=== PATIENT | female | born 1945 | race Caucasian/White ===

== ENCOUNTER 2017-03-11 15:58 | Inpatient (IN) | payer OTHER ==
[~2017-03-11] VITALS: Ht 157.5 cm; Wt 60.8 kg
--- NOTE | ~2017-03-11 | EKG ---
[address] [place] [address] ELECTROCARDIOGRAM REPORT Name: LES SUAREZ Room #: 456-P ADM IN M.R.#: [id number] Admission: 03/11/17 Attend Phys: Aparna Alas Discharge: Date of : 47 Report #: [id number] THIS REPORT FOR: //name// [facility] ED Test Date: 2017-03-11 Test Time: 18:19:13 Pat Name: LES SUAREZ Department: Room: 456 Gender: F Plasma Cutting Machine Operator: : 1945 Requested By: Eric Hogan Order Number: [id number] MD: Roger Gonzalez Measurements Intervals [place] Rate: 91 P: 101 MT: 186 QRS: -44 QRSD: 126 T: 92 QT: 387 QTc: 477 Interpretive Statements Sinus rhythm Left bundle branch block Compared to ECG 11/10/2016 14:05:44 No significant change was found Electronically Signed On 03-13-2017 9:14:43 CDT by Roger Gonzalez [email or web address] <ELECTRONICALLY SIGNED> By: Roger Gonzalez MD, [facility] 03/13/17 0914 1819 18 Roger Gonzalez MD, FACC /EPI
[2017-03-11 15:58] VITALS: BP 202/86
[~2017-03-11 15:58] MED LIST: AMITRIPTYLINE H50 M2 PO; BACTRIM DS TAB1 EACH PO; GLUCOPHAGE XR500 MG PO; GLYBURIDE 2.52.5 MG PO; LIPITOR10 MG PO; LISINOPRIL-HCT1 EACH PO; LOPRESSOR50 PO
[2017-03-11 16:37] LABS: ABSOLUTE NEUTROPHILS 11.3 thou/uL (1.4-8.2); BASOPHILS 0.8 % (0.0-2.0); EOSINOPHILS 0.6 % (0.0-3.0); HEMATOCRIT 36.5 % (37.0-47.0); HEMOGLOBIN 12.2 gm/dL (12.0-15.0); LYMPHOCYTES 12.9 % (24.0-44.0); MANUAL DIFF NO; MCH 28.2 pg (26.0-34.0); MCHC 33.4 g/dL (28.0-37.0); MCV 84.3 fL (80.0-100.0); MONOCYTES 2.7 % (1.0-8.0); PLATELET COUNT 417 thou/uL (150-400); RBC 4.33 mil/uL (4.20-5.00); RDW 13.9 % (10.5-14.5); WBC 13.7 thou/uL (4.0-11.0)
[2017-03-11 16:50] LABS: ANION GAP 12 mmol/L (7-16); BUN 23 mg/dL (7-18); CHLORIDE 96 mmol/L (98-107); CO2 25 mmol/L (21-32); CREATININE 0.9 mg/dL (0.6-1.0); GLUCOSE 254 mg/dL (74-106); POTASSIUM 4.1 mmol/L (3.5-5.1); SODIUM 133 mmol/L (136-145)
[2017-03-11 16:54] LABS: ALBUMIN 3.7 g/dL (3.4-5.0); ALKALINE PHOSPHATASE 94 U/L (46-116); DIRECT BILIRUBIN < 0.1 mg/dL (<0.1-0.3); SGOT 14 U/L (15-37); SGPT 26 U/L (30-65); TOTAL BILIRUBIN 0.2 mg/dL (<0.1-1.0); TOTAL PROTEIN 8.6 g/dL (6.4-8.2)
[2017-03-11] MEDS ORDERED: CLEOCIN HCL300 MG PO (17:07)
[2017-03-11] MEDS ORDERED: NORCO 10-325 T1 EACH PO (17:08)
[2017-03-11] MEDS ORDERED: LISINOPRIL-HCT1 EAC1 PO (17:09)
[2017-03-11] MEDS ORDERED: ASPIRIN81 M2 PO (17:10)
[2017-03-11 19:05] LABS: URINE BILIRUBIN NEGATIVE (Negative); URINE BLOOD TRACE (Negative); URINE COLOR YELLOW; URINE GLUCOSE-RANDOM* 2+ (Negative); URINE KETONES 1+ (Negative); URINE NITRITE NEGATIVE (Negative); URINE PROTEIN (DIPSTICK) TRACE (Negative); URINE UROBILINOGEN 0.2 E.U./dl (0.2-1.0)
[2017-03-11 20:33] VITALS: BP 190/70
[2017-03-11 20:51] VITALS: BP 174/63
[2017-03-12 03:25] VITALS: BP 119/48
[2017-03-12 06:14] LABS: ABSOLUTE NEUTROPHILS 9.3 thou/uL (1.4-8.2); BASOPHILS 0.3 % (0.0-2.0); EOSINOPHILS 0.1 % (0.0-3.0); HEMATOCRIT 31.6 % (37.0-47.0); HEMOGLOBIN 10.6 gm/dL (12.0-15.0); LYMPHOCYTES 20.2 % (24.0-44.0); MCH 27.5 pg (26.0-34.0); MCHC 33.4 g/dL (28.0-37.0); MCV 82.3 fL (80.0-100.0); MONOCYTES 7.1 % (1.0-8.0); PLATELET COUNT 384 thou/uL (150-400); POLYS 72.3 % (36.0-66.0); RBC 3.84 mil/uL (4.20-5.00); RDW 14.4 % (10.5-14.5); WBC 12.9 thou/uL (4.0-11.0)
[2017-03-12 06:17] LABS: MANUAL DIFF NO
[2017-03-12 06:30] LABS: ALBUMIN 2.9 g/dL (3.4-5.0); CALCIUM 8.5 mg/dL (8.5-10.1); CREATININE 1.2 mg/dL (0.6-1.0); POTASSIUM 3.5 mmol/L (3.5-5.1); TOTAL BILIRUBIN 0.2 mg/dL (<0.1-1.0); TOTAL PROTEIN 6.6 g/dL (6.4-8.2)
[2017-03-12 07:53] VITALS: BP 109/51
[2017-03-12 12:09] VITALS: BP 147/63
[2017-03-12 16:01] VITALS: BP 152/65
[2017-03-12 19:23] VITALS: BP 177/79
[2017-03-13 03:12] VITALS: BP 164/67
[2017-03-13 06:19] LABS: ALBUMIN 2.9 g/dL (3.4-5.0); CALCIUM 8.5 mg/dL (8.5-10.1); CREATININE 0.8 mg/dL (0.6-1.0); TOTAL BILIRUBIN 0.3 mg/dL (<0.1-1.0); TOTAL PROTEIN 6.1 g/dL (6.4-8.2)
[2017-03-13 07:55] VITALS: BP 167/83
[2017-03-13 11:27] VITALS: BP 158/79
[2017-03-13 15:54] VITALS: BP 161/60
[2017-03-13 19:48] VITALS: BP 155/71
[2017-03-14 03:15] VITALS: BP 146/60
[2017-03-14 08:18] VITALS: BP 186/62
[2017-03-14 10:58] VITALS: BP 186/62
== END 2017-03-14 13:49 | disposition home or self-care (01) | DRG 444 ==
LOC: ER 15:58 → 4W 19:10 → EROBS 19:10 → 4W 20:33
PROVIDERS: Hospitalist; Nurse Practitioner
DX: K83.1 Obstruction of bile duct (principal); N17.0 Acute kidney failure with tubular necrosis; E86.0 Dehydration; E11.9 Type 2 diabetes mellitus without complications; I10 Essential (primary) hypertension; F32.9 Major depressive disorder, single episode, unspecified; F17.210 Nicotine dependence, cigarettes, uncomplicated; G89.29 Other chronic pain; K04.7 Periapical abscess without sinus; F43.9 Reaction to severe stress, unspecified; Z90.11 Acquired absence of right breast and nipple; Z90.49 Acquired absence of other specified parts of digestive tract; Z79.82 Long term (current) use of aspirin; Z79.84 Long term (current) use of oral hypoglycemic drugs; Z79.899 Other long term (current) drug therapy
CPT/HCPCS: 10040

== ENCOUNTER 2018-01-10 19:37 | Inpatient (IN) | payer OTHER ==
[~2018-01-10] VITALS: Ht 157.5 cm; Wt 59.7 kg
--- NOTE | ~2018-01-10 | 2DMMODE ---
[facility] [address] [place] [address] 2 D/M-MODE ECHOCARDIOGRAM Name: LES SUAREZ Room #: 205-P [facility] IN ..#: [id number] Admission: 01/10/18 Attend Phys: Linwood Gtz, Discharge: Date of : 47 Date of Service: 01/11/18 1144 Report #: [id number] THIS REPORT FOR: //name// APPROVED REPORT Study performed: 01/11/2018 10:35:27 EXAM: Comprehensive 2D, Doppler, and color-flow Echocardiogram Patient Location: Bedside Room #: 205 Status: routine BSA: 1.60 HR: 83 bpm BP: 115/55 mmHg Rhythm: NSR with irregularities Other Information Study Quality: Good Indications Dizziness, syncope, murmur. Hx: DM, HTN, PVD, tobacco abuse. 2D Dimensions RVDd: 32.22 mm LVEF(%): 53.42 (>50%) IVSd: 9.73 (7-11mm) LVOT Diam: 20.04 (18-24mm) LVDd: 36.77 mm PWd: 9.59 (7-11mm) Ascending Ao: 26.44 (22-36mm) LVDs: 26.86 (25-40mm) Aortic Root: 25.20 mm Kathleen's LVEF: 53.42 % Volumes Left Atrial Volume (Systole) Single Plane 4CH: 37.86 mL Single Plane 2CH: 53.55 mL LA ESV Index: 30.00 mL/m2 Aortic Valve AoV Peak Lewis.: 2.06 m/s AO Peak Gr.: 17.06 mmHg LVOT Max P.46 mmHg AO Mean Gr.: 8.89 mmHg AO V2 Mean: 1.43 m/s LVOT Max V: 1.05 m/s AO V2 VTI: 49.15 cm FRANCI Vmax: 1.60 cm2 AI Vmax: 4.27 m/s AI Jeff Davis: 3.94 m/s2 [facility] [place] [address] 2 D/M-MODE ECHOCARDIOGRAM Name: LES SUAREZ Room #: 205-P [facility] IN ..#: [id number] Admission: 01/10/18 Attend Phys: Linwood Gtz, Discharge: Date of : 47 Date of Service: 01/11/18 1144 Report #: [id number] AI PHT: 314.78 ms Mitral Valve E/A Ratio: 0.9 MV Decel. Time: 140.54 ms MV E Max Lewis.: 0.78 m/s MV A Lewis.: 0.91 m/s MV PHT: 40.76 ms IVRT: 93.43 ms Pulmonary Valve PV Peak Lewis.: 1.09 m/s PV Peak Gr.: 4.79 mmHg Pulmonary Vein P Vein S: 0.34 m/s P Vein D: 0.40 m/s P Vein S/D Ratio: 0.85 Tricuspid Valve RAP Estimate: 5.00 mmHg Left Ventricle The left ventricle is normal size. There is normal left ventricular wall thickness. Left ventricular systolic function is normal. LVEF is 55%. Mild diastolic dysfunction is present (impaired relaxation pattern). Right Ventricle The right ventricle is normal size. The right ventricular systolic function is normal. Atria The left atrium size is normal. The right atrium size is normal. Aortic Valve Aortic valve is calcified. Moderate aortic regurgitation. There is very mild valvular aortic stenosis. Calculated aortic valve area is 1.8 cm2 with maximum pressure gradient of 17 mmHg and mean pressure gradient of 9 mmHg. Mitral Valve Mitral valve leaflets are mildly thickened and calcified. Mild mitral regurgitation. No evidence of mitral valve stenosis. Tricuspid Valve [facility] [address] [place] [address] 2 D/M-MODE ECHOCARDIOGRAM Name: LES SUAREZ Room #: 205-P [facility] IN [facility]#: [id number] Admission: 01/10/18 Attend Phys: Linwood Gtz, Discharge: Date of : 47 Date of Service: 01/11/18 1144 Report #: [id number] The tricuspid valve is normal in structure. There is no tricuspid valve regurgitation noted. Unable to assess PA pressure. Pulmonic Valve The pulmonary valve is normal in structure. Trace pulmonic regurgitation. Great Vessels The aortic root is normal in size. The ascending aorta is normal in size. IVC is normal in size and collapses >50% with inspiration. Pericardium There is no pericardial effusion. <Conclusion> The left ventricle is normal size. There is normal left ventricular wall thickness. Left ventricular systolic function is normal. Mild diastolic dysfunction is present (impaired relaxation pattern). The right ventricle is normal size. The left atrium size is normal. There is very mild valvular aortic stenosis. Calculated aortic valve area is 1.8 cm2 with maximum pressure gradient of 17 mmHg and mean pressure gradient of 9 mmHg. Moderate aortic regurgitation. Mild mitral regurgitation. <ELECTRONICALLY SIGNED> By: Semaj Sherwood MD 01/11/18 1144 1144 1144 Semaj Sherwood MD /INF
--- NOTE | ~2018-01-10 | HC ---
[facility] [place] [address] CONSULTATION Name: LES SUAREZ Room #: 205-P [facility] IN M.R.#: [id number] Admission: 01/10/18 Attend Phys: Linwood Gtz DO Discharge: 01/11/18 Date of : 47 Report #: [id number] THIS REPORT FOR: //name// CC: Dr. Jennifer Rhodes MD DATE OF SERVICE: 01/11/2018 INTRODUCTION: The patient is a 72-year-old female being seen for a general foot care. She has a history of diabetes, has been admitted with dehydration, dizziness. She also has had a long history of peripheral arterial disease and pain in her left leg. She has undergone previous vascular procedures to reestablish normal blood flow. The patient has a history of diabetes with some level of sensation loss; however, does state that she experiences pain with her feet, in fact has a painful left fourth toe secondary to impingement on her fifth toe. She generally does not wear especially footwear recently. Because of the pain in her left foot, has been wearing slippers at home. PAST MEDICAL HISTORY: With regard to this consultation is otherwise, unremarkable. PHYSICAL EXAMINATION: PEDAL: Reveals dorsalis pedis and posterior tibial pulses that are not palpable bilaterally. Skin is cool and atrophic. She has mild edema of the left foot and some discoloration. NEUROLOGIC: The patient has ability to sense a soft touch utilizing Hamilton-Maximus monofilament despite her subjective sense of "numbness." DERMATOLOGIC: Reveals elongated, thickened and mycotic nails, particularly both hallux nails, which are severely dystrophic. There are no acute findings with regard to these nails. They are consistent with onychodystrophy associated with onychomycosis. There is a small area of irritation on the lateral aspect of the left fourth proximal interphalangeal joint secondary to impingement of her fifth toe. This is also a foot that is dysvascular. Currently, there is no open sore at this site; however, the skin is thin and fragile. This fourth toe is also sore. There is no evidence of cellulitis or infection. Remainder of her dermatologic exam reveals no additional pathology. IMPRESSION: 1. Diabetes mellitus. 2. Peripheral arterial disease. 3. Diabetic peripheral neuropathy. 4. Onychodystrophy, presumably associated with onychomycosis. [address] [address] CONSULTATION Name: LES SUAREZ Room #: 205-P DIS IN M.R.#: [id number] Admission: 01/10/18 Attend Phys: Linwood Gtz DO Discharge: 01/11/18 Date of : 47 Report #: [id number] PLAN: The patient's condition is reviewed with her at length. We reviewed strategies for avoiding foot complications. She is currently being seen by Dr. Christina and Dr. Rodriguez regarding her peripheral arterial disease and her vascular status. Her left fourth toe is stable and we discussed methods for keeping these toes to prevent further injury. Her nails were debrided. No additional pathology is noted at the time of treatment. It has been a pleasure having the opportunity of working with the patient. If there are any questions regarding this consultation, please do not hesitate to contact me. I will be pleased to follow up with her upon request. By: 1300 36 Geo Anand DPM /arturo
--- NOTE | ~2018-01-10 | EKG ---
[place] [address] [facility] [place] [address] ELECTROCARDIOGRAM REPORT Name: LES SUAREZ Room #: 205-P ADM IN M.R.#: [id number] Admission: 01/10/18 Attend Phys: Linwood Gtz DO Discharge: Date of : 47 Report #: [id number] THIS REPORT FOR: //name// [facility] ED Test Date: 2018-01-10 Test Time: 19:56:58 Pat Name: LES SUAREZ Department: Room: Gender: F Ndt Inspector: FABI : 1945 Requested By: Eric Hogan Order Number: [id number] MD: Tha Banerjee Measurements Intervals [place] Rate: 90 P: -62 AL: 176 QRS: -41 QRSD: 135 T: 110 QT: 380 QTc: 465 Interpretive Statements Sinus or ectopic atrial rhythm Left bundle branch block Baseline wander in lead(s) II,III,aVF Compared to ECG 03/11/2017 18:19:13 Ectopic atrial rhythm now present Sinus rhythm no longer present Electronically Signed On 01-11-2018 8:20:54 CDT by Tha Banerjee [email or web address] <ELECTRONICALLY SIGNED> By: Tha Banerjee MD 01/11/18819 55 55 Tha Banerjee MD /EPI
[~2018-01-10 19:37] MED LIST changes: +ASPIRIN81 M2 PO; +CLEOCIN HCL300 MG PO; +LISINOPRIL-HCT1 EAC1 PO; +NORCO 10-325 T1 EACH PO
[2018-01-10 19:53] VITALS: BP 181/91
[2018-01-10 20:40] LABS: ABSOLUTE NEUTROPHILS 5.3 thou/uL (1.4-8.2); BASOPHILS 0.9 % (0.0-2.0); EOSINOPHILS 1.4 % (0.0-3.0); HEMATOCRIT 31.6 % (37.0-47.0); HEMOGLOBIN 10.5 gm/dL (12.0-15.0); LYMPHOCYTES 32.8 % (24.0-44.0); MCH 26.9 pg (26.0-34.0); MCHC 33.4 g/dL (28.0-37.0); MCV 80.5 fL (80.0-100.0); MONOCYTES 6.8 % (1.0-8.0); PLATELET COUNT 438 thou/uL (150-400); POLYS 58.1 % (36.0-66.0); RBC 3.92 mil/uL (4.20-5.00); RDW 14.4 % (10.5-14.5); WBC 9.2 thou/uL (4.0-11.0)
[2018-01-10 20:50] LABS: ANION GAP 10 mmol/L (7-16); BUN 19 mg/dL (7-18); CALCIUM 9.2 mg/dL (8.5-10.1); CHLORIDE 91 mmol/L (98-107); CO2 21 mmol/L (21-32); CREATININE 1.2 mg/dL (0.6-1.0); GLUCOSE 47 mg/dL (74-106); POTASSIUM 3.9 mmol/L (3.5-5.1); SODIUM 122 mmol/L (136-145)
[2018-01-10 20:59] LABS: TROPONIN-I < 0.04 ng/mL (<0.06)
[2018-01-10 21:54] VITALS: BP 184/73
[2018-01-10 22:40] VITALS: BP 150/61
[2018-01-10] MEDS ORDERED: FOLBIC RF TABL1 EACH PO (23:25)
[2018-01-10 23:35] VITALS: BP 152/62
[2018-01-11] VITALS (7 sets, daily range): BP systolic 115–142; BP diastolic 40–66
[2018-01-11 05:28] LABS: CALCIUM 8.7 mg/dL (8.5-10.1); POTASSIUM 3.7 mmol/L (3.5-5.1)
[2018-01-11 09:51] LABS: FOLIC ACID 16.6 ng/mL (8.6-58.9)
== END 2018-01-11 19:38 | disposition home or self-care (01) | DRG 682 ==
LOC: ER 19:37 → 2N 21:59 → EROBS 21:59 → 2N 22:47 → ENTRNSPT 01-11 19:24 → 2N 01-11 19:38
PROVIDERS: Nurse Practitioner; Nurse Practitioner Family; Psychiatry & Neurology Neurology
DX: N17.9 Acute kidney failure, unspecified (principal); G93.40 Encephalopathy, unspecified; E87.1 Hypo-osmolality and hyponatremia; I10 Essential (primary) hypertension; F32.9 Major depressive disorder, single episode, unspecified; E86.0 Dehydration; E11.649 Type 2 diabetes mellitus with hypoglycemia without coma; E11.51 Type 2 diabetes mellitus with diabetic peripheral angiopathy without gangrene; L60.3 Nail dystrophy; B35.1 Tinea unguium; F17.210 Nicotine dependence, cigarettes, uncomplicated; G89.29 Other chronic pain; E78.5 Hyperlipidemia, unspecified; I65.29 Occlusion and stenosis of unspecified carotid artery; L97.529 Non-pressure chronic ulcer of other part of left foot with unspecified severity; Z95.5 Presence of coronary angioplasty implant and graft; Z79.82 Long term (current) use of aspirin; Z79.899 Other long term (current) drug therapy; Z90.49 Acquired absence of other specified parts of digestive tract; Z90.11 Acquired absence of right breast and nipple
CPT/HCPCS: 10081

== ENCOUNTER 2018-02-11 05:07 | Inpatient (IN) | payer OTHER ==
[~2018-02-11] VITALS: Ht 157.5 cm; Wt 62.1 kg
--- NOTE | ~2018-02-11 | HC ---
[facility] [place] [address] CONSULTATION Name: LES SUAREZ Room #: 459-P [facility] IN M.R.#: [id number] Admission: 02/11/18 Attend Phys: Mc Wilkerson MD Discharge: Date of : 47 Report #: [id number] THIS REPORT FOR: //name// CC: Mc Rhodes DATE OF SERVICE: 02/12/2018 Endocrine Consultation. The patient of Dr. Wilkerson. ROOM: 459, bed 1. SUBJECTIVE: A 72-year-old white female admitted with UTI, hypoglycemia and change in mental status. The patient is a very poor medical equipment repair technician. She states she has had diabetes for "many years" and most recently has been treated with 20 mg of glyburide per day, plus 500 mg of extended release metformin. The patient is not on any specific diet. She does not check her blood sugars. She has no idea of her hemoglobin A1c or other determinants of glucose control. She began to feel mentally confused after failure to eat, which was subsequently determined to be secondary to the effects of a UTI. At admission, the patient's blood sugar was in the 50s, which slowly increased with discontinuation of sulfonylurea therapy. The patient then required several doses of insulin for episodes of mild hyperglycemia. Unfortunately, the patient is unable to give any further prior past or family history that is of significance. CURRENT MEDICATIONS: Include aspirin, atorvastatin, enoxaparin, famotidine, ondansetron, acetaminophen, insulin as mentioned above and possibly other medication. OBJECTIVE: LABORATORY DATA: Glucose is low as the 50s as above. More recent glucoses have been as high as the mid 200s. PHYSICAL EXAMINATION: GENERAL: Thin, 72-year-old white female in no acute distress. The patient is alert and oriented x 3. VITAL SIGNS: She is afebrile, heart rate 100 and regular, blood pressure 120/60. SKIN: Warm and moist with slightly decreased turgor. HEENT: PERRLA. CHEST: Clear. HEART: Regular rhythm without murmurs, rubs or gallops. ABDOMEN: Benign. EXTREMITIES: Show no edema, cyanosis or clubbing. Peripheral pulses 2+ and [facility] [address] [place] [address] CONSULTATION Name: LES SUAREZ Room #: 459-P [facility] IN [facility].#: [id number] Admission: 02/11/18 Attend Phys: Mc Wilkerson MD Discharge: Date of : 47 Report #: [id number]. NEUROLOGIC: Grossly intact. ASSESSMENT: 1. Diabetes mellitus out of control with recent hypoglycemia due to glyburide at high doses with failure to ingest food. Glyburide is potentially dangerous in a patient in this age group, particularly one who is living alone, unable to guarantee adequate oral intake, and who does not do home glucose monitoring. 2. Insulin resistance and hyperinsulinemia. PLAN: 1. Will evaluate prior control with hemoglobin A1c. 2. Will initiate appropriate diet and have patient instructed. 3. Will encourage non-caloric liquids for rehydration. 4. Will reinitiate extended release metformin, which will not drop sugar below normal. The patient may need an increase in this dosage over time to a more appropriate level. 5. Will institute DPP-4 inhibitor for glucose control in the form of linagliptin, which will not cause hypoglycemia as sulfonylurea particularly at high dose will do. Thank you very much for this consultation. I will continue to follow the patient with you for treatment of diabetes mellitus. <ELECTRONICALLY SIGNED> By: Chidi Caldera MD 02/13/18 1719 1831 0419 Chidi Caldera MD /nt
--- NOTE | ~2018-02-11 | EKG ---
[address] [place] [address] ELECTROCARDIOGRAM REPORT Name: LES SUAREZ Room #: 459-P ADM IN M.R.#: [id number] Admission: 02/11/18 Attend Phys: Mc Wilkerson MD Discharge: Date of : 47 Report #: [id number] THIS REPORT FOR: //name// [facility] ED Test Date: 2018-02-11 Test Time: 05:24:57 Pat Name: LES SUAREZ Department: Room: Gender: F Sales Office Manager: celia : 1945 Requested By: Barrington Adler Order Number: [id number] MD: Semaj Sherwood Measurements Intervals [place] Rate: 85 P: -51 [place]: 164 QRS: -39 QRSD: 120 T: 121 QT: 361 QTc: 430 Interpretive Statements Sinus or ectopic atrial rhythm LVH with IVCD, LAD and secondary repol abnrm Anteroseptal NC Compared to ECG 01/10/2018 19:56:58 Significant change Electronically Signed On 02-11-2018 12:59:43 CDT by Semaj Sherwood [email or web address] <ELECTRONICALLY SIGNED> By: Semaj Sherwood MD 02/11/18 1259 Semaj Sherwood MD /LINDA
--- NOTE | ~2018-02-11 | H ---
[facility] [place] [address] HISTORY AND PHYSICAL Name: LES SUAREZ Room #: 459-P ADM IN M.R.#: [id number] Admission: 02/11/18 Attend Phys: Mc Wilkerson MD Discharge: Date of : 47 Report #: [id number] THIS REPORT FOR: //name// CC: Mc Carpiogreg Michaelalan REASON FOR PRESENTATION: Weakness and not feeling well. HISTORY OF PRESENT ILLNESS: A 72-year-old with past medical history of diabetes mellitus. She woke up this morning after taking a sleeping pill, not feeling good. She was too weak to move. Weakness was generalized. She tried to reach out to something, but could not hold it. She landed on the floor. She called her at that time, who brought her to the Emergency Room with her daughters via EMS. She denies any previous similar episodes. She does not check her blood sugar. She is not really sure about the control of her blood sugar. No reported nausea or vomiting. No chest pain. No numbness in any part of her body. No loss of consciousness. No slurred speech. She is known to have hypertension and is taking hydrochlorothiazide. Blood sugar on arrival was in the 49 range. Sodium was also on the low side. Initial workup was nonrevealing when it comes to the neurological status. She is being admitted to further evaluate. PAST MEDICAL HISTORY: 1. Diabetes mellitus. 2. Hypertension. 3. Left breast surgery for necrotic tissue removal. 4. Depression. 5. Cholecystectomy. 6. Numerous stents of her lower extremities. FAMILY HISTORY: Cancer. SOCIAL HISTORY: No drug or alcohol abuse. However, she is a current everyday smoker. She is planning on quitting and stopped smoking 2 days ago. REVIEW OF SYSTEMS: GENERAL: Weakness. CARDIOVASCULAR: No chest pain or palpitation. PULMONARY: No cough or hemoptysis. GASTROINTESTINAL: No nausea or vomiting. GENITOURINARY: No frequency, no urgency. NEUROLOGICAL: As per the history of present illness. MEDICATIONS: 1. Lipitor. 2. Metoprolol. 3. Aspirin. [facility] [place] [address] HISTORY AND PHYSICAL Name: LES SUAREZ Room #: 459-P [facility] IN ..#: [id number] Admission: 02/11/18 Attend Phys: Mc Wilkerson MD Discharge: Date of : 47 Report #: [id number] 4. Metformin. 5. Glyburide. PHYSICAL EXAMINATION: GENERAL: Alert, oriented. VITAL SIGNS: Blood pressure is marginal at 89/62. HEAD AND NECK: No jugular venous distention, no bruit, no thyromegaly. CHEST: Clear to auscultation bilaterally. CARDIOVASCULAR: Regular with no rub. ABDOMEN: Soft, nontender with no hepatosplenomegaly. EXTREMITIES: Lower extremities, no edema. LABORATORY DATA: Laboratory values reviewed. Hemoglobin 10.7. Sodium 128, creatinine 1.0, blood sugar is 66. Calcium is 10.3. UA looks dirty, urine culture is pending. Head CT negative. Chest x-ray negative. ASSESSMENT, IMPRESSION AND PLAN: 1. Weakness: 2. Hyponatremia. 3. Hypoglycemia. 4. Hypotension. 5. Urinary tract infection. 6. Admission. 7. Intravenous fluids. 8. Discontinue metformin. 9. Discontinue glyburide. 10. Discontinue hydrochlorothiazide. 11. Normal saline. 12. Monitor glucose. 13. P.r.n. D50. 14. Deep venous thrombosis and gastrointestinal prophylaxis. By: 0926 [id number] cM Wilkerson MD /nt
[~2018-02-11 05:07] MED LIST changes: +FOLBIC RF TABL1 EACH PO
[2018-02-11 05:09] VITALS: BP 89/62
[2018-02-11] MEDS ORDERED: GLYBURIDE 2.52.5 MG PO (05:25)
[2018-02-11 05:35] LABS: ABSOLUTE NEUTROPHILS 6.1 thou/uL (1.4-8.2); BASOPHILS 0.6 % (0.0-2.0); EOSINOPHILS 1.9 % (0.0-3.0); HEMATOCRIT 32.7 % (37.0-47.0); HEMOGLOBIN 10.7 gm/dL (12.0-15.0); LYMPHOCYTES 27.7 % (24.0-44.0); MCH 25.9 pg (26.0-34.0); MCHC 32.8 g/dL (28.0-37.0); MCV 79.1 fL (80.0-100.0); MONOCYTES 7.1 % (1.0-8.0); PLATELET COUNT 518 thou/uL (150-400); POLYS 62.7 % (36.0-66.0); RBC 4.14 mil/uL (4.20-5.00); RDW 14.7 % (10.5-14.5); WBC 9.7 thou/uL (4.0-11.0)
[2018-02-11 05:43] LABS: ANION GAP 13 mmol/L (7-16); BUN 33 mg/dL (7-18); CALCIUM 10.3 mg/dL (8.5-10.1); CHLORIDE 94 mmol/L (98-107); CO2 21 mmol/L (21-32); GLUCOSE 66 mg/dL (74-106); POTASSIUM 4.5 mmol/L (3.5-5.1); SODIUM 128 mmol/L (136-145)
[2018-02-11 05:52] LABS: TROPONIN-I < 0.04 ng/mL (<0.06)
[2018-02-11 06:33] LABS: URINE BILIRUBIN NEGATIVE (Negative); URINE BLOOD TRACE (Negative); URINE CLARITY SL CLOUDY; URINE COLOR YELLOW; URINE GLUCOSE-RANDOM* NEGATIVE (Negative); URINE KETONES NEGATIVE (Negative); URINE PROTEIN (DIPSTICK) NEGATIVE (Negative); URINE UROBILINOGEN 0.2 E.U./dl (0.2-1.0)
[2018-02-11 06:35] LABS: URINE LEUKOCYTES-REFLEX 2+ (Negative); URINE NITRITE-REFLEX POSITIVE (Negative)
[2018-02-11 06:41] LABS: BACTERIA-REFLEX >30 Many /HPF (None Seen); CASTS None Seen /LPF (None Seen); CRYSTALS None Seen /LPF (None Seen); SQUAMOUS 0-3 Few /LPF (0-3); URINE WBC-REFLEX 6-15 Few /HPF (0-5)
[2018-02-11 06:42] LABS: URINE RBC None Seen /HPF (0-2)
[2018-02-11 08:04] VITALS: BP 89/62
[2018-02-11 08:16] VITALS: BP 89/62
[2018-02-11 08:50] VITALS: BP 142/52
[2018-02-11 16:00] VITALS: BP 130/47
[2018-02-11 19:16] VITALS: BP 118/63
[2018-02-12 04:13] VITALS: BP 108/64
[2018-02-12 05:57] LABS: HEMATOCRIT 27.1 % (37.0-47.0); MCH 26.2 pg (26.0-34.0); MCHC 33.3 g/dL (28.0-37.0); MCV 78.5 fL (80.0-100.0); RBC 3.44 mil/uL (4.20-5.00); RDW 14.4 % (10.5-14.5)
[2018-02-12 06:05] LABS: ALBUMIN 2.9 g/dL (3.4-5.0); CREATININE 0.8 mg/dL (0.6-1.0); PHOSPHORUS 3.6 mg/dL (2.5-4.9); POTASSIUM 4.3 mmol/L (3.5-5.1)
[2018-02-12 06:06] LABS: CALCIUM 8.2 mg/dL (8.5-10.1)
[2018-02-12 09:28] VITALS: BP 139/53
[2018-02-12 13:14] LABS: % SATURATION 19 % (20-39); IRON 57 ug/dL (50-170); TIBC 300 ug/dL (250-450)
[2018-02-12 13:41] LABS: FOLIC ACID 15.9 ng/mL (8.6-58.9)
[2018-02-12 17:31] VITALS: BP 120/58
[2018-02-12 20:00] VITALS: BP 118/53
[2018-02-13 02:10] LABS: GLYCOHEMOGLOBIN (HGB A1C) 6.7 % (4.8-5.6)
[2018-02-13 05:08] VITALS: BP 144/76
[2018-02-13 07:39] VITALS: BP 143/56
[2018-02-13 16:02] VITALS: BP 173/55
[2018-02-13 19:13] VITALS: BP 139/52
[2018-02-14 04:09] VITALS: BP 110/58
[2018-02-14 05:39] LABS: ABSOLUTE NEUTROPHILS 3.6 thou/uL (1.4-8.2); BASOPHILS 1.2 % (0.0-2.0); HEMOGLOBIN 9.5 gm/dL (12.0-15.0); LYMPHOCYTES 27.4 % (24.0-44.0); MCHC 32.8 g/dL (28.0-37.0); MCV 79.4 fL (80.0-100.0); MONOCYTES 6.6 % (1.0-8.0); PLATELET COUNT 478 thou/uL (150-400); POLYS 62.8 % (36.0-66.0); RBC 3.65 mil/uL (4.20-5.00); RDW 15.2 % (10.5-14.5); WBC 5.8 thou/uL (4.0-11.0)
[2018-02-14 06:02] LABS: CREATININE 0.8 mg/dL (0.6-1.0); POTASSIUM 4.8 mmol/L (3.5-5.1)
[2018-02-14 08:00] VITALS: BP 155/64
[2018-02-14 12:22] VITALS: BP 155/64
[2018-02-14] MEDS ORDERED: HYDROXYZINE HCL25 M1 PO (15:24)
[2018-02-14 16:00] VITALS: BP 183/65
[2018-02-14] MEDS ORDERED: KEFLEX500 M1 PO (16:15)
[2018-02-14] MEDS ORDERED: TRADJENTA5 MG PO (16:20)
== END 2018-02-14 17:28 | disposition home health service (06) | DRG 683 ==
LOC: ER 05:07 → 4W 07:45 → EROBS 07:45 → 4W 08:18 → ENTRNSPT 02-14 17:09 → 4W 02-14 17:28
PROVIDERS: Emergency Medicine; Hospitalist
DX: N17.9 Acute kidney failure, unspecified (principal); N39.0 Urinary tract infection, site not specified; E87.1 Hypo-osmolality and hyponatremia; I10 Essential (primary) hypertension; E78.5 Hyperlipidemia, unspecified; F17.210 Nicotine dependence, cigarettes, uncomplicated; F32.9 Major depressive disorder, single episode, unspecified; E11.649 Type 2 diabetes mellitus with hypoglycemia without coma; I95.9 Hypotension, unspecified; E11.51 Type 2 diabetes mellitus with diabetic peripheral angiopathy without gangrene; G47.00 Insomnia, unspecified; T37.3X5A Adverse effect of other antiprotozoal drugs, initial encounter; F41.9 Anxiety disorder, unspecified; F43.0 Acute stress reaction; G31.84 Mild cognitive impairment of uncertain or unknown etiology; K21.9 Gastro-esophageal reflux disease without esophagitis; E86.0 Dehydration; F22 Delusional disorders; Z90.49 Acquired absence of other specified parts of digestive tract; Z87.440 Personal history of urinary (tract) infections; Z79.899 Other long term (current) drug therapy; Z79.84 Long term (current) use of oral hypoglycemic drugs; Z79.82 Long term (current) use of aspirin; Z88.6 Allergy status to analgesic agent; Z80.8 Family history of malignant neoplasm of other organs or systems; Z91.14 Patient's other noncompliance with medication regimen; Z90.11 Acquired absence of right breast and nipple; Y92.89 Other specified places as the place of occurrence of the external cause
CPT/HCPCS: 10045